=== PATIENT | male | born 1990 | race Two or more races ===

== ENCOUNTER 2025-10-07 22:53 | Emergency (ER) | payer OTHER ==
[~2025-10-07] VITALS: Ht 188 cm; Wt 83.9 kg
[2025-10-07 23:41] VITALS: BP 121/55; O2SAT 98
[2025-10-07] MEDS ORDERED: KEPPRA XR500 MG (23:42)
[2025-10-07] MEDS ORDERED: SODIUM CL 0.9% 25 ML IV.SOLN. IV STA (23:43)
[2025-10-08 01:54] LABS: COVID-19 AG NEGATIVE (NEGATIVE)
[2025-10-08 02:25] LABS: BASO % 0.4 % (0.1-1.2); EOS # 0.05 (0.04-0.54); EOS % 0.4 % (0.7-7.0); LYMPH # 3.64 (1.18-3.74); LYMPH % 26.9 % (19.3-53.1); MEAN PLATELET VOLUME 10.30 fl (9.4-12.4); MONO # 1.80 (0.24-0.82); NEUT # 7.96 (1.56-6.13); NEUT % 58.7 % (34.0-71.1); RED CELL DISTRIBUTION WIDTH 13.2 % (11.6-14.4)
[2025-10-08 02:26] LABS: MONO % 13.3 % (4.7-12.5)
[2025-10-08 02:35] LABS: BUN CREA RATIO 12.0 (7.0-25.0); CREATININE SERUM 1.58 mg/dL (0.70-1.30); GLUCOSE FASTING 54.0 mg/dL (65-100); OSMOLALITY SERUM 279.0 MOSM/KG (275-295)
[2025-10-08 02:37] LABS: GFR 50.45
[2025-10-08] MEDS ORDERED: LORazepam 2 MG/ML VIAL IV ONE (03:45)
[2025-10-08] MEDS ORDERED: LORazepam 2 MG/ML VIAL ONE (03:45)
[2025-10-08 07:54] LABS: URINE APPEARANCE Clear; URINE BILIRRUBIN Negative (NEGATIVE); URINE BLOOD Negative; URINE COLOR Yellow; URINE GLUCOSE Negative (NEGATIVE); URINE KETONE 15 (NEGATIVE); URINE LEUKOCYTE Trace; URINE NITRATE Negative; URINE PROTEIN Trace (NEGATIVE); URINE UROBILINOGEN 1.0 E.U./dl
[2025-10-08 07:59] LABS: URINE BACTERIA 2574.0 uL (0.0-1933); URINE EPITHELIAL CELLS 11.0 uL (0.0-38.8); URINE WBC 78.6 uL (0.0-23.2)
[2025-10-08 08:01] LABS: COCAINE NEGATIVE (NEGATIVE); METHADONE NEGATIVE (NEGATIVE); OPIATES NEGATIVE (NEGATIVE); THC ( Cannabinoids) NEGATIVE (NEGATIVE)
[2025-10-08 08:25] LABS: URINE CAST 0.43 uL (0.0-1.40); URINE RBC 1.6 uL (0.0-20.8)
== END 2025-10-08 10:35 | disposition home or self-care (01) ==
LOC: ER 22:53
PROVIDERS: General Practice
DX: R55 Syncope and collapse (principal); Z88.8 Allergy status to other drugs, medicaments and biological substances; Z20.822 Contact with and (suspected) exposure to COVID-19